=== PATIENT | female | born 2000 | race Caucasian/White ===

== ENCOUNTER 2023-05-09 15:46 | Emergency (ER) | payer BC ==
[2023-05-09 15:58] VITALS: BP 124/88; PULSE 100; RESP 20; TEMP 97.8
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
[2023-05-09 16:43] LABS: Appearance,Urine Clear (Clear); Bilirubin,Urine Negative (Negative); Blood,Urine Small (Negative); Color,Urine Colorless; Glucose,Urine (UA) Negative (Negative); Ketones,Urine Negative (Negative); Leukocyte Esterase,Urine Negative (Negative); Nitrite,Urine Negative (Negative); PH, Urine 7.5 (5.0-8.0); Protein,Urine Trace (Negative); RBC,Urine 6 /hpf (0-5); Specific Gravity,Urine 1.009 (1.001-1.035); Squamous Epithelial Cell,Urine 1 /hpf (0-4); Urobilinogen,Urine <2.0 mg/dL (<2.0); WBC,Urine 1 /hpf (0-5)
== END 2023-05-09 16:55 | disposition home or self-care (01) ==
LOC: EC 15:46
DX: T74.21XA Adult sexual abuse, confirmed, initial encounter (principal); F12.90 Cannabis use, unspecified, uncomplicated; Z88.6 Allergy status to analgesic agent; Z86.59 Personal history of other mental and behavioral disorders
CPT/HCPCS: 81001; 81025; 87491; 99284

== ENCOUNTER → 2024-07-26 | Outpatient (CLI) | payer BC ==
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
== END | disposition home or self-care (01) ==
LOC: RADMRIMAIN 18:58
PROVIDERS: ATTEND Orthopaedic Surgery
DX: M67.813 Other specified disorders of tendon, right shoulder (principal)

== ENCOUNTER → 2024-09-13 | Outpatient (CLI) | payer BC ==
--- NOTE | 2024-09-13 15:03 | FL ---
EXAMINATION TYPE: FL barium swallow DATE OF EXAM: 09/13/2024 COMPARISON: NONE CLINICAL INDICATION: Female, 24 years old with history of K21.9 GERD, indigestion and vomiting for 2 months. Patient takes reflux medication for years. Patient also takes antivomiting medication. TECHNIQUE: A double contrast esophagram is attempted utilizing air and barium. A total of 28 second s of fluoroscopic time was utilized during procedure and 55 images obtained. Total DAP = n/p. FINDINGS: Suboptimal study as patient had poor tolerance of air and barium. The esophagus shows adequ ate motility and emptying into the stomach. No obstructing mass. No evidence of fixed hiatal hernia o r stricture noted. No significant gastroesophageal reflux was seen during real time performance of th is study. IMPRESSION: Suboptimal study. No significant abnormality is however seen to account for patient's sy mptoms. [facility], , 09/13/2024 3:00 PM
== END | disposition home or self-care (01) ==
LOC: RADFLMAIN 08:21
PROVIDERS: ATTEND Family Medicine
DX: K21.9 Gastro-esophageal reflux disease without esophagitis (principal)
CPT/HCPCS: 74220

== ENCOUNTER → 2024-09-13 | Outpatient (CLI) | payer BC ==
--- NOTE | 2024-09-15 23:36 | CT ---
EXAMINATION TYPE: CT lumbar spine wo con DATE OF EXAM: 09/13/2024 8:42 AM COMPARISON: None. CLINICAL INDICATION: Female, 24 years old with history of M54.50 LOW BACK PAIN M48.061 SPINAL STENOSI S, LUMB, LOWER BACK PAIN, pain TECHNIQUE: CT of the lumbar spine is performed on a spiral scan at 3 mm thick sections. Reconstructed images are performed in the coronal and sagittal planes. Contrast used: mL of , (none if empty) Oral contrast used: (none if empty) CT DLP: 868 mGycm, Automated exposure control for dose reduction was used. FINDINGS: T12-L1: No focal disc herniation or significant disc bulge is evident. No spinal canal stenosis or neural foraminal stenosis is present. L1-L2: No focal disc herniation or significant disc bulge is evident. No spinal canal stenosis or n eural foraminal stenosis is present L2-L3: No focal disc herniation or significant disc bulge is evident. No spinal canal stenosis or n eural foraminal stenosis is present L3-L4: No focal disc herniation or significant disc bulge is evident. No spinal canal stenosis or n eural foraminal stenosis is present L4-L5: Mild disc bulges anterior thecal sac contact. No AP spinal canal stenosis is present. Neural f oramen are patent L5-S1: No focal disc herniation or significant disc bulge is evident. No spinal canal stenosis or n eural foraminal stenosis is present Scoliosis is present with the convexity to the left. IMPRESSION: Mild disc bulge L4-5 without spinal canal stenosis or neural foraminal stenosis. 2. Scoliosis [facility], , 09/15/2024 11:34 PM
== END | disposition home or self-care (01) ==
LOC: RADCTMAIN 08:18
PROVIDERS: ATTEND Orthopaedic Surgery
DX: M48.061 Spinal stenosis, lumbar region without neurogenic claudication (principal); M42.06 Juvenile osteochondrosis of spine, lumbar region; M51.360 Other intervertebral disc degeneration, lumbar region with discogenic back pain only; M41.86 Other forms of scoliosis, lumbar region; M51.16 Intervertebral disc disorders with radiculopathy, lumbar region
CPT/HCPCS: 72131

== ENCOUNTER → 2024-09-13 | Outpatient (CLI) | payer BC ==
--- NOTE | 2024-09-14 09:42 | MR ---
EXAMINATION TYPE: MR lumbar spine wo con DATE OF EXAM: 09/13/2024 COMPARISON: CT lumbar spine September 13, 2024 HISTORY: Low back pain into both legs TECHNIQUE: Multiplanar, multisequence imaging of the lumbar spine is performed without IV contrast. FINDINGS: Persistent levoconvex scoliosis centered at L2-L3 level. Sagittal images of the lumbar spin e show vertebral body heights to remain satisfactory. Some early disc desiccation at L4-L5 level is s een. The intervertebral discs otherwise demonstrate normal heights and hydration. The conus medullar is is normal in position and signal ending mid L1 level. The bone marrow signal intensity is within normal limits. Axial images show multilevel mild facet arthropathy in the mid to lower lumbar spine. No suspicious f ocal disc herniation. There is no spinal canal stenosis, neural foraminal narrowing, or evidence of n erve root compromise. Paraspinal muscle bulk is maintained. IMPRESSION: Scoliosis redemonstrated. No suspicious focal disc herniation. [facility], , 09/14/2024 9:39 AM
== END | disposition home or self-care (01) ==
LOC: RADMRIMAIN 13:58
PROVIDERS: ATTEND Orthopaedic Surgery
DX: M48.061 Spinal stenosis, lumbar region without neurogenic claudication (principal); M47.26 Other spondylosis with radiculopathy, lumbar region; M42.06 Juvenile osteochondrosis of spine, lumbar region; M41.86 Other forms of scoliosis, lumbar region
CPT/HCPCS: 72148

== ENCOUNTER 2024-09-15 17:47 | Emergency (ER) | payer BC ==
[2024-09-15 18:05] VITALS: RESP 16
--- NOTE | 2024-09-15 18:57 | ED ---
Nausea/Vomiting/Diarrhea HPI - General Chief complaint: Nausea/Vomiting/Diarrhea Stated complaint: Vomitting/Nausea Time Seen by Provider: 09/15/24 17:59 Source: patient, RN notes reviewed Mode of arrival: ambulatory Limitations: no limitations - History of Present Illness Initial comments: This is a 24-year-old female with history of GERD and IUD use presenting for chronic nausea x 3 months. Patient endorses associated abdominal cramping/twisting and vomiting. States symptoms are random and not associated with eating. Patient denies history of similar symptoms in the past prior to symptoms that been occurring the last 3 months. Patient endorses having 2 normal bowel movements today without blood. States she was prescribed Zofran 8 mg, which she has taken twice a day with minimal relief. Patient endorses recently undergoing a barium swallow study, abdominal ultrasound and lumbar CT scan with no obvious obstruction or right upper quadrant abnormalities noted. Patient is mainly concerned with fluid replenishment and controlled nausea at this time. Denies fever, chills, chest pain, dyspnea, hematemesis, and diarrhea, constipation, hematochezia, melena, dizziness, urinary symptoms, vaginal bleeding/discharge. MD complaint: nausea, vomiting Onset/Timin -: month(s) Description of Vomiting: food contents, watery Associated Abdominal Pain: Yes Location: epigastric Radiation: none Quality: cramping Consistency: intermittent Worsens with: vomiting - Related Data Previous Rx's Medication Instructions Recorded Metoclopramide [Reglan] 10 mg PO Q8H PRN #15 tab 09/15/24 Allergies Allergy/AdvReac Type Severity Reaction Status Date / Time NSAIDS (Non-Steroidal Allergy Unknown Verified 09/15/24 18:00 Anti-Inflamma Opioids-Meperidine and AdvReac Unknown Verified 09/15/24 18:00 Related Review of Systems ROS Statement: Those systems with pertinent positive or pertinent negative responses have been documented in the HPI. ROS Other: All systems not noted in ROS Statement are negative. Past Medical History Past Medical History: GERD/Reflux Additional Past Medical History / Comment(s): back pain , chronic nausea/vomiting History of Any Multi-Drug Resistant Organisms: None Reported Past Surgical History: No Surgical Hx Reported Additional Past Surgical History / Comment(s): nasal,exporatory lap Past Psychological History: Anxiety, Bipolar, Depression Smoking Status: Current some day smoker Past Alcohol Use History: Occasional Past Drug Use History: None Reported General Exam Limitations: no limitations General appearance: alert, in no apparent distress Head exam: Present: atraumatic, normocephalic, normal inspection Eye exam: Present: normal appearance, PERRL, EOMI. Absent: scleral icterus, conjunctival injection, periorbital swelling ENT exam: Present: normal exam, mucous membranes moist Neck exam: Present: normal inspection. Absent: tenderness, meningismus, lymphadenopathy Respiratory exam: Present: normal lung sounds bilaterally. Absent: respiratory distress, wheezes, rales, rhonchi, stridor Cardiovascular Exam: Present: regular rate, normal rhythm, normal heart sounds. Absent: systolic murmur, diastolic murmur, rubs, gallop, clicks GI/Abdominal exam: Present: soft, tenderness (Positive RUQ TTP with reproduction of nausea on palpation. Unable to confirm Lam sign), diminished bowel sounds, hypoactive bowel sounds. Absent: distended, guarding, rebound, rigid Extremities exam: Present: normal inspection, full ROM, normal capillary refill. Absent: tenderness, pedal edema, joint swelling, calf tenderness Back exam: Present: normal inspection Neurological exam: Present: alert, oriented X3, CN II-XII intact Psychiatric exam: Present: normal affect, normal mood Skin exam: Present: warm, dry, intact, normal color. Absent: rash Course Vital Signs 09/15/24 09/15/24 18:00 20:35 Temperature 97.9 F 98.0 F Pulse Rate 93 81 Respiratory 16 16 Rate Blood Pressure 130/88 101/67 O2 Sat by Pulse 98 98 Oximetry Medical Decision Making - Medical Decision Making Was pt. sent in by a medical professional or institution (, PA, [employer]PERATOR [employer], urgent care, hospital, or [place] health care facility...) When possible be specific @ -[No] Did you speak to anyone other than the patient for history (EMS, parent, family, police, friend...)? What history was obtained from this source @ -[No] Did you review nursing and triage notes (agree or disagree)? Why? @ -[I reviewed and agree with nursing and triage notes] Were old charts reviewed (outside hosp., previous admission, EMS record, old EKG, old radiological studies, urgent care reports/EKG's, [place] health care facility records)? Report findings @ -[No old charts were reviewed] Differential Diagnosis (chest pain, altered mental status, abdominal pain women, abdominal pain men, vaginal bleeding, weakness, fever, dyspnea, syncope, headache, dizziness, GI bleed, back pain, seizure, CVA, palpatations, mental health, musculoskeletal)? @ -Differential Abdominal Pain Women: Appendicitis, Cholecystitis, diverticulosis, ischemic bowel, pancreatitis, hepatitis, UTI, gastroenteritis, AAA, incarcerated hernia, bowel obstruction, constipation, inflammatory bowel, hepatitis, peptic ulcer disease, splenic infarction, perforated viscus, vulvitis, ovarian torsion, PID, kidney stone, placenta abruption, this is not meant to be an all-inclusive list EKG interpreted by me (3pts min.). @ -Not done X-rays interpreted by me (1pt min.). @ -[None done] CT interpreted by me (1pt min.). @ -[None done] U/S interpreted by me (1pt. min.). @ -[None done] What testing was considered but not performed or refused? (CT, X-rays, U/S, labs)? Why? @ -[None] What meds were considered but not given or refused? Why? @ -[None] Did you discuss the management of the patient with other professionals (professionals i.e. , PA, [employer] CONTR[employer] OPERATOR [employer]ING, lab, RT, psych nurse, social worker health services, geotechnical engineer, teacher, booking police officer, behavioral health case manager)? Give summary @ -[No] Was smoking cessation discussed for >3mins.? @ -[No] Was critical care preformed (if so, how long)? @ -[No] Were there social determinants of health that impacted care today? How? (Homelessness, low income, unemployed, alcoholism, drug addiction, transportation, low edu. Level, literacy, decrease access to med. care, correction, rehab)? @ -[No] Was there de-escalation of care discussed even if they declined (Discuss DNR or withdrawal of care, Hospice)? DNR status @ -[No] What co-morbidities impacted this encounter? (DM, HTN, Smoking, COPD, CAD, Cancer, CVA, ARF, Chemo, Hep., AIDS, mental health diagnosis, sleep apnea, morbi d obesity)? @ -[None] Was patient admitted / discharged? Hospital course, mention meds given and rou te, prescriptions, significant lab abnormalities, going to OR and other pertinent info. @ -[hospital course] Undiagnosed new problem with uncertain prognosis? @ -[No] Drug Therapy requiring intensive monitoring for toxicity (Heparin, Nitro, Insulin, Cardizem)? @ -[No] Were any procedures done? @ -[No] Diagnosis/symptom? @ -[default] Acute, or Chronic, or Acute on Chronic? @ -Acute on chronic Uncomplicated (without systemic symptoms) or Complicated (systemic symptoms)? @ -Uncomplicated Side effects of treatment? @ -[No] Exacerbation, Progression, or Severe Exacerbation? @ -[No] Poses a threat to life or bodily function? How? (Chest pain, [place], [place], pneumonia, PE, COPD, DKA, ARF, appy, cholecystitis, CVA, Diverticulitis, Homicidal, Suicidal, threat to staff... and all critical care pts) @ -[No] - Lab Data Result diagrams: 09/15/24 19:25 09/15/24 19:25 Lab Results 09/15/24 09/15/24 09/15/24 Range/Units 19:25 19:25 19:25 WBC 11.00 H (4.50-10.00) 10*3/uL RBC 4.76 (4.10-5.20) 10*6/uL Hgb 14.5 (12.0-15.0) g/dL Hct 42.9 (37.2-46.3) % MCV 90.1 (80.0-97.0) fL MCH 30.5 (27.0-32.0) pg MCHC 33.8 (32.0-37.0) g/dL Plt Count 322 (140-440) 10*3/uL MPV 9.8 (9.5-12.2) fL Immature Gran % (Auto) 0.2 % Neutrophils % 67.2 % Lymphocytes % 26.5 % Monocytes % 5.2 % Eosinophils % 0.5 % Basophils % 0.4 % Immature Gran # 0.02 (0.00-0.04) 10*3/uL Neutrophils # 7.41 (1.80-7.70) 10*3/uL Lymphocytes # 2.91 (0.90-5.00) 10*3/uL Monocytes # 0.57 (0.20-1.00) 10*3/uL Eosinophils # 0.05 (0.04-0.35) 10*3/uL Basophils # 0.04 (0.00-0.10) 10*3/uL Sodium 139 (137-145) mmol/L Potassium 3.9 (3.5-5.1) mmol/L Chloride 103 (98-107) mmol/L Carbon Dioxide 27 (22-30) mmol/L Anion Gap 9 mmol/L BUN 12 (7-17) mg/dL Creatinine 0.91 (0.52-1.04) mg/dL Est GFR (CKD-EPI)AfAm >90 (>60 ml/min/1.73 sqM) Est GFR (CKD-EPI)NonAf 88 (>60 ml/min/1.73 sqM) Glucose 93 (74-99) mg/dL Plasma Lactic Acid David 0.6 L (0.7-2.0) mmol/L Calcium 9.7 (8.4-10.2) mg/dL Total Bilirubin 0.5 (0.2-1.3) mg/dL AST 35 (14-36) U/L ALT 66 H (4-34) U/L Alkaline Phosphatase 135 H (38-126) U/L Total Protein 7.6 (6.3-8.2) g/dL Albumin 4.9 (3.5-5.0) g/dL Lipase 72 (23-300) U/L Urine Color Urine Appearance (Clear) Urine pH (5.0-8.0) Ur Specific [place] (1.001-1.035) Urine Protein (Negative) Urine Glucose (UA) (Negative) Urine Ketones (Negative) Urine Blood (Negative) Urine Nitrite (Negative) Urine Bilirubin (Negative) Urine Urobilinogen (<2.0) mg/dL Ur Leukocyte Esterase (Negative) Urine RBC (0-5) /hpf Urine WBC (0-5) /hpf Ur Squamous Epith Cells (0-4) /hpf Amorphous Sediment (None) /hpf Urine Bacteria (None) /hpf Urine Mucus (None) /hpf Urine HCG, Qual (Not Detectd) 09/15/24 09/15/24 Range/Units 19:58 19:58 WBC (4.50-10.00) 10*3/uL RBC (4.10-5.20) 10*6/uL Hgb (12.0-15.0) g/dL Hct (37.2-46.3) % MCV (80.0-97.0) fL MCH (27.0-32.0) pg MCHC (32.0-37.0) g/dL Plt Count (140-440) 10*3/uL MPV (9.5-12.2) fL Immature Gran % (Auto) % Neutrophils % % Lymphocytes % % Monocytes % % Eosinophils % % Basophils % % Immature Gran # (0.00-0.04) 10*3/uL Neutrophils # (1.80-7.70) 10*3/uL Lymphocytes # (0.90-5.00) 10*3/uL Monocytes # (0.20-1.00) 10*3/uL Eosinophils # (0.04-0.35) 10*3/uL Basophils # (0.00-0.10) 10*3/uL Sodium (137-145) mmol/L Potassium (3.5-5.1) mmol/L Chloride (98-107) mmol/L Carbon Dioxide (22-30) mmol/L Anion Gap mmol/L BUN (7-17) mg/dL Creatinine (0.52-1.04) mg/dL Est GFR (CKD-EPI)AfAm (>60 ml/min/1.73 sqM) Est GFR (CKD-EPI)NonAf (>60 ml/min/1.73 sqM) Glucose (74-99) mg/dL Plasma Lactic Acid David (0.7-2.0) mmol/L Calcium (8.4-10.2) mg/dL Total Bilirubin (0.2-1.3) mg/dL AST (14-36) U/L ALT (4-34) U/L Alkaline Phosphatase (38-126) U/L Total Protein (6.3-8.2) g/dL Albumin (3.5-5.0) g/dL Lipase (23-300) U/L Urine Color Colorless Urine Appearance Cloudy H (Clear) Urine pH 7.0 (5.0-8.0) Ur Specific [place] 1.013 (1.001-1.035) Urine Protein Negative (Negative) Urine Glucose (UA) Negative (Negative) Urine Ketones Negative (Negative) Urine Blood Negative (Negative) Urine Nitrite Negative (Negative) Urine Bilirubin Negative (Negative) Urine Urobilinogen <2.0 (<2.0) mg/dL Ur Leukocyte Esterase Negative (Negative) Urine RBC 2 (0-5) /hpf Urine WBC 1 (0-5) /hpf Ur Squamous Epith Cells 2 (0-4) /hpf Amorphous Sediment Rare H (None) /hpf Urine Bacteria Rare H (None) /hpf Urine Mucus Rare H (None) /hpf Urine HCG, Qual Not Detected (Not Detectd) Disposition Clinical Impression: Gastroenteritis Disposition: HOME SELF-CARE Condition: Good Instructions (If sedation given, give patient instructions): Acute Nausea and Vomiting (ED) Additional Instructions: Bananas, rice, applesauce, tea, toast. Increase intake of water and G atorade/Pedialyte. Radha tea/rajinder for nausea. Follow-up with PCP/gastroenterology for ongoing management of GI symptoms. Prescriptions: Metoclopramide [Reglan] 10 mg PO Q8H PRN #15 tab PRN Reason: Nausea Is patient prescribed a controlled substance at d/c from ED?: No Referrals: Rui Crowder MD [Primary Care Provider] - 1-2 days Lacie Bhatti MD [STAFF PHYSICIAN] - 1-2 days Time of Disposition: 20:20
[2024-09-15] MEDS: METOCLOPRAMIDE 5 MG/ML 2 ML VIAL IVP STA (19:20)
[2024-09-15] MEDS: SODIUM CHLORIDE 0.9% 1,000 ML IV STA (19:20)
[2024-09-15 19:31] LABS: Basophils # (A) 0.04 10*3/uL (0.00-0.10); Basophils % (A) 0.4 %; Eosinophils # (A) 0.05 10*3/uL (0.04-0.35); Eosinophils % (A) 0.5 %; HCT 42.9 % (37.2-46.3); HGB 14.5 g/dL (12.0-15.0); Lymphocytes # (A) 2.91 10*3/uL (0.90-5.00); Lymphocytes % (A) 26.5 %; MCH 30.5 pg (27.0-32.0); MCHC 33.8 g/dL (32.0-37.0); MCV 90.1 fL (80.0-97.0); Mean Platelet Volume 9.8 fL (9.5-12.2); Monocytes # (A) 0.57 10*3/uL (0.20-1.00); Monocytes % (A) 5.2 %; Neutrophils # (A) 7.41 10*3/uL (1.80-7.70); Neutrophils % (A) 67.2 %; Platelet Count 322 10*3/uL (140-440); RBC 4.76 10*6/uL (4.10-5.20); RDW 12.8 % (11.5-14.5)
[2024-09-15 19:56] LABS: ALT 66 U/L (4-34); AST 35 U/L (14-36); African American GFR (CKD) >90 (>60 ml/min/1.73 sqM); Albumin 4.9 g/dL (3.5-5.0); Alkaline Phosphatase 135 U/L (38-126); Anion Gap 9 mmol/L; Blood Urea Nitrogen 12 mg/dL (7-17); Calcium 9.7 mg/dL (8.4-10.2); Carbon Dioxide 27 mmol/L (22-30); Chloride 103 mmol/L (98-107); Glucose 93 mg/dL (74-99); Lipase 72 U/L (23-300); Non-African American GFR(CKD) 88 (>60 ml/min/1.73 sqM); Potassium 3.9 mmol/L (3.5-5.1); Sodium 139 mmol/L (137-145); Total Bilirubin 0.5 mg/dL (0.2-1.3); Total Protein 7.6 g/dL (6.3-8.2)
[2024-09-15 20:13] LABS: Amorphous Sediment,Urine Rare /hpf; Appearance,Urine Cloudy (Clear); Bacteria,Urine Rare /hpf; Bilirubin,Urine Negative (Negative); Blood,Urine Negative (Negative); Color,Urine Colorless; Glucose,Urine (UA) Negative (Negative); Ketones,Urine Negative (Negative); Leukocyte Esterase,Urine Negative (Negative); Mucus,Urine Rare /hpf; Nitrite,Urine Negative (Negative); Protein,Urine Negative (Negative); RBC,Urine 2 /hpf (0-5); Specific Gravity,Urine 1.013 (1.001-1.035); Squamous Epithelial Cell,Urine 2 /hpf (0-4); Urobilinogen,Urine <2.0 mg/dL (<2.0); WBC,Urine 1 /hpf (0-5)
[2024-09-15 20:37] VITALS: BP 101/67; PULSE 81; TEMP 98
== END 2024-09-15 20:36 | disposition home or self-care (01) ==
LOC: EC 17:47
DX: K52.9 Noninfective gastroenteritis and colitis, unspecified (principal); F17.200 Nicotine dependence, unspecified, uncomplicated; Z88.5 Allergy status to narcotic agent; Z88.6 Allergy status to analgesic agent
CPT/HCPCS: 36415; 80053; 83605; 83690; 85025; 81001; 81025; 99284; 96374; 96361; J2765

== ENCOUNTER → 2024-11-03 | Outpatient (CLI) | payer BC ==
--- NOTE | 2024-11-03 10:36 | NM ---
EXAMINATION TYPE: NM hepatobiliary w CCK DATE OF EXAM: 11/03/2024 COMPARISON: NONE CLINICAL INDICATION: Female, 24 years old with history of R11.2 nausea w/vomiting; TECHNIQUE: After the intravenous administration of 4.7 mCi Tc 99m Mebrofenin hepatobiliary scintigrap hy is performed. Immediate images post injection. FINDINGS: There is satisfactory initial accumulation of tracer by the liver. The gallbladder is visualized wit hin 38 minutes. The small bowel activity is noted within 14 minutes. At one hour CCK was administer ed, patient was injected with 1.6 mcg of Kinevac, and gallbladder ejection fraction is calculated at 85 %, in the normal range. Therefore there is no scintigraphic evidence of cystic or common bile dalila t obstruction to suggest acute cholecystitis or gallbladder dyskinesia. IMPRESSION: Exam is within normal limits. [facility], , 11/03/2024 10:34 AM
== END | disposition home or self-care (01) ==
LOC: RADNMMAIN 07:40
PROVIDERS: ATTEND Family Medicine
DX: R11.2 Nausea with vomiting, unspecified (principal)
CPT/HCPCS: 78227; A9537; J2805